=== PATIENT | female | born 1980 ===

== ENCOUNTER 2019-09-23 19:14 | Emergency (ER) | payer OTHER ==
[2019-09-23] MEDS ORDERED: Sodium Chloride 0.9% 2.5 ML Syringe FLUSH PRN (19:19)
[2019-09-23] MEDS ORDERED: Sodium Chloride 0.9% 10 ML Syringe FLUSH PRN (19:19)
[2019-09-23] MEDS ORDERED: ceFAZolin 2 GM in Premix Bag 1 BAG IV ONE (19:21)
[2019-09-23] MEDS ORDERED: Sodium Chloride 0.9% 1,000 ML IV ONE (19:21)
[2019-09-23] MEDS ORDERED: Diphtheria,Pertussis(Acell),Tetanus Vaccine 0.5 ML Syringe IM ONE (19:21)
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
[2019-09-23] MEDS ORDERED: fentaNYL 100 MCG/2 ML SDV IVPUSH ONE (19:32)
[2019-09-23] MEDS ORDERED: Ondansetron 4 MG/2 ML SDV IVPUSH ONE (19:32)
[2019-09-23] MEDS ORDERED: Iopamidol 755 Mg/ML 100 ML Bottle IVPUSH ONE (20:01)
[2019-09-23 20:35] LABS: BLOOD UREA NITROGEN,BUN 13 mg/dL (7.0-18.0); CARBON DIOXIDE,CO2 24.2 mmol/L (21.0-32.0); CHLORIDE,CL 107 mmol/L (98-107); GLUCOSE RANDOM 116 mg/dL (74-106); LIPASE 168 U/L (73-393); POTASSIUM,K 3.7 mmol/L (3.5-5.1); SODIUM,NA 144 mmol/L (136-145)
[2019-09-23] MEDS ORDERED: Lidocaine 1% with EPINEPHrine 1:100,000 20 ML MDV INJECT ONE (20:40)
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
== END 2019-09-23 21:30 ==
LOC: EDBD 19:14 → MW.ED 19:14
DX: S06.6X0A Traumatic subarachnoid hemorrhage without loss of consciousness, initial encounter (principal); S82.851A Displaced trimalleolar fracture of right lower leg, initial encounter for closed fracture; S01.01XA Laceration without foreign body of scalp, initial encounter; S81.011A Laceration without foreign body, right knee, initial encounter; S20.212A Contusion of left front wall of thorax, initial encounter; S80.12XA Contusion of left lower leg, initial encounter; Z23 Encounter for immunization; V43.62XA Car passenger injured in collision with other type car in traffic accident, initial encounter; Y92.410 Unspecified street and highway as the place of occurrence of the external cause
CPT/HCPCS: 36415; 51702; 70450; 71260; 72125; 73560; 73590; 73600; 74177; 80053; 80305; 80320; 81001; 81025; 83690; 84484; 85025; 85610; 87086; 90471; 90715; 93005; 96361; 96365; 96375; 99291; J0690; J2405; J3010; J7040; Q9967; G0480